=== PATIENT | female | born 1965 | race Caucasian/White ===

== ENCOUNTER 2024-05-12 10:35 | Outpatient (AMB) | payer OTHER, SELFPAY ==
--- NOTE | 2024-05-12 10:48 | MHC.PC.OV ---
Vital Signs 05/12/24 10:51 Height 5 ft 1 in Weight 135 lb 2 oz BMI 25.5 BP 126/74 Blood Pressure Location Lt brachial Position Sitting Respiration 14 Pulse 88 Pulse Oximetry (%) 99 Oxygen Delivery Method Room Air Intake Visit Reasons: janel from [facility] for monjaro Intake Note: patient is here to [facility]. Accompanied by: Spouse Allergies acetaminophen [From Percocet] Allergy (Severe, Verified 05/12/24 10:56) Vomiting oxycodone [From Percocet] Allergy (Severe, Verified 05/12/24 10:56) Vomiting Tobacco use date assessed: 05/12/24 Dental Screening Dental Screen Date: 05/12/24 Did you have a dental visit in the last 12 months?: Yes Did you have a dental problem in the last 6 months where you did not have access to dental care?: No Was dental information given to patient?: Patient has dentist HPI HPI Comments History of Present Illness Details The patient is a 59-year-old female with a past medical history of type 2 diabetes, hypertension, hyperlipidemia, hidradenitis suppurativa presenting to [facility]. She is transferring from [facility]. Type 2 diabetes: On Mounjaro. A1C 5.3%. Eye exam UTD CV: On hydrochlorothiazide, atorvastatin. Denies chest pain, exertional dyspnea Mammo:due Pap: Colon cancer:due. Has eugene ROS CONSTITUTIONAL: Denies weight loss, fever and chills. HEENT: Denies changes in vision and hearing. RESPIRATORY: Denies SOB and cough. CV: Denies palpitations and CP GI: Denies abdominal pain, nausea, vomiting and diarrhea. : Denies dysuria and urinary frequency. MSK: Denies new myalgia and joint pain. SKIN: Denies rash and pruritus. NEUROLOGICAL: Denies headache PSYCHIATRIC: Denies recent changes in mood. PHYSICAL EXAM: GENERAL: Alert and oriented x 3. NAD EYES: EOMI. Anicteric. HENT: Moist mucous membranes. No scleral icterus. No cervical lymphadenopathy. LUNGS: Clear to auscultation bilaterally. CARDIOVASCULAR: Regular rate and rhythm. No murmur. No JVD. ABDOMEN: Soft, non-tender +bs EXTREMITIES: No edema. Non-tender. SKIN: No rashes or lesions. Warm. NEUROLOGIC: No focal neurological deficits. CN II-XII grossly intact PSYCHIATRIC: Cooperative. Appropriate mood and affect [facility] Medical History (Updated 05/12/24 @ 11:38 by Opal Smith MD) High cholesterol Diabetes Surgical History (Updated 05/12/24 @ 11:12 by Pastor Newton) H/O: hysterectomy History of ankle surgery Family History (Updated 05/12/24 @ 11:15 by Pastor Newton) Mother Alcoholism Throat cancer Sister Pre-diabetes Sister High cholesterol Social History (Updated 05/12/24 @ 11:06 by Pastor Newton) Household Members: Spouse, Family and Children Housing: House Are you a primary chiropractic care to a significant other at home: No Do you presently have visiting nurse or other home services: No 75 years or older and lives alone: No Alcohol intake: current Alcohol intake frequency: holidays/special occasions only Alcohol type: hard liquor Patient Tobacco Use Status: Former Tobacco user Tobacco use type: Cigarette Cigarette Packs Per Day: 1 Cigarettes Per Day: 20 Years Smoked: 40 e-Cigarette/Vaping Use: Currently Using service: No Current occupational status: employed 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 1. Little interest or pleasure in doing things: not at all 2. Feeling down, depressed, or hopeless: not at all 3. Trouble falling or staying asleep, or sleeping too much: several days 4. Feeling tired or having little energy: not at all 5. Poor appetite or overeating: not at all 6. Feeling bad about yourself - or that you are a failure or have let yourself or your family down: not at all 7. Trouble concentrating on things, such as reading the newspaper or watching television: not at all 8. Moving or speaking so slowly that other people could have noticed. Or the opposite - being so fidgety or restless that you have been moving around a lot more than usual: not at all 9. Thoughts that you would be better off or of hurting yourself in some way: not at all Total score: 1 Depression Screening Interpretation: Negative (neg) Depression Screening Done: Yes 48137 - PHQ-9 Billing: Yes Source: Developed by Drs. Edmundo Child, Nadege Arreguin, Ted Lemus and colleagues, with an educational shanae from [employer]. Thrive Questionnaire Date Thrive assessed: 05/12/24 I am a: Patient What is your living situation today?: I have a steady place to live Within the past 12 months, did the food you bought not last and you didn't have the money to get more?: Never true Within the past 12 months, did you worry whether your food would run out before you got money to buy more?: Never true Do you have trouble paying for medicines?: No Do you have trouble getting transportation to medical appointments?: No Do you have trouble paying your heating and electricity bill?: No Do you have trouble taking care of your child, family member or friend?: No Do you have trouble with day-to-day activities such as bathing, preparing meals, shopping, managing finances, etc.?: No Are you currently unemployed and looking for a job?: No Are you interested in more education?: No Please select the resources that you would like help with: None Currently or been in a relationship where the following occur: No concerns reported THRIVE Score: 0 AUDIT C Alcohol Use Questionnaire (AUDIT-C) 1. How often do you have a drink containing alcohol?: Monthly or less 2. How many drinks containing alcohol do you have on a typical day when you are drinking?: 1 or 2 3. How often do you have six or more drinks on one occasion?: Never Total Score: 1 JETHRO-7 AMB Questionnaire JETHRO-7 Date JETHRO - 7 assessed: 05/12/24 Feeling nervous, anxious, or on edge: 0 = Not at all Not being able to stop or control worryin = Not at all Worrying too much about different things: 0 = Not at all Trouble relaxin = Not at all Being so restless that it is hard to sit still: 0 = Not at all Becoming easily annoyed or irritable: 0 = Not at all Feeling afraid as if something awful might happen: 0 = Not at all Total JETHRO-7 score (0-4 normal; 5-9 mild; 10-14 moderate; 15-21 severe): 0 Source: Developed by Nadege SchwartzW. Rodríguez, Ted Lemus and colleagues, with an educational shanae from [employer]. JETHRO-7 Assessment Billing JETHRO-7 Assessment Tool: JETHRO-7 Assessment 16555 Physical exam (Primary Care) Vital Signs: Last Vital Signs Pulse 88 05/12/24 10:51 Resp 14 05/12/24 10:51 BP 126/74 05/12/24 10:51 Pulse Ox 99 05/12/24 10:51 Oxygen Delivery Method Room Air 05/12/24 10:51 BMI result Body Mass Index 25.5 Tobacco/Smoking Status: Tobacco use Status Tobacco use date assessed 05/12/24 05/12/24 11:04 Patient Tobacco Use Status Former Tobacco user 05/12/24 11:06 Tobacco use type Cigarette 05/12/24 11:06 e-Cigarette/Vaping Use Currently Using 05/12/24 11:06 PHQ-9: PHQ-9 Score PHQ-9: Total score 1 05/24/24 11:40 Depression Screening Interpretation: Negative (neg) Thrive Assessment: Date of Thrive Assessment Date Thrive assessed 05/12/24 05/12/24 11:10 Currently or been in a relationship where the following occur: No concerns reported Assessment and Plan Assessment & Plan (1) Encounter to establish care: Code(s): Z76.89 - Persons encountering health services in other specified circumstances Plan: 59 year old female presenting to establish care. Past medical, surgical, social and family history reviewed. Labs ordered. Referral colonoscopy. Mammogram ordered (2) Diabetes: Code(s): E11.9 - Type 2 diabetes mellitus without complications Qualifiers: Diabetes mellitus complication status: without complication Diabetes mellitus terminal makeup operator insulin use: without terminal makeup operator use Diabetes mellitus type: type 2 Qualified Code(s): E11.9 - Type 2 diabetes mellitus without complications Plan: Continue mounjaro. Labs ordered Orders: Orders Hemoglobin A1c 05/12/24 E78.00 - Pure hypercholesterolemia, unspecified, E11.9 - Type 2 diabetes mellitus without complications Complete Blood Count Auto Diff 05/12/24 E78.00 - Pure hypercholesterolemia, unspecified, E11.9 - Type 2 diabetes mellitus without complications MM screening mammo BI 05/12/24 Z12.31 - Encounter for screening mammogram for malignant neoplasm of breast Comprehensive Met. Panel 05/12/24 E78.00 - Pure hypercholesterolemia, unspecified, E11.9 - Type 2 diabetes mellitus without complications Lipid Panel 05/12/24 E78.00 - Pure hypercholesterolemia, unspecified, E11.9 - Type 2 diabetes mellitus without complications Referrals Open Access Screening Colonoscopy Referral Z12.11 - Encounter for screening for malignant neoplasm of colon, Z12.12 - Encounter for screening for malignant neoplasm of rectum, Z15.09 - Genetic susceptibility to other malignant neoplasm Medications: New tirzepatide (Mounjaro) 5 mg (0.5 mL) subcut QWEEK 6 mL 3RF 12 weeks Coding Level of Care Code New Pt Level 4 (17370) Diagnoses Encounter to establish care Z76.89 Type 2 diabetes mellitus without complication, without long-term current use of insulin E11.9 Diabetes mellitus complication status: without complication Diabetes mellitus terminal makeup operator insulin use: without terminal makeup operator use Diabetes mellitus type: type 2 Additional Codes JETHRO-7 Assessment Billing - JETHRO-7 Assessment Tool: JETHRO-7 Assessment 86798 ([id number])
[2024-05-12 10:51] VITALS: BP 126/74; PULSE 88; RESP 14; O2SAT 99; BMI 25.5
== END 2024-05-12 11:54 | disposition home or self-care (01) ==
PROVIDERS: PCP Internal Medicine; Visit Provider Internal Medicine
DX: E11.9 Type 2 diabetes mellitus without complications (principal); Z76.89 Persons encountering health services in other specified circumstances
CPT/HCPCS: 99204

== ENCOUNTER 2024-05-12 11:45 | Outpatient (REF) | payer OTHER, SELFPAY ==
[2024-05-12 14:37] LABS: MANUAL DIFF FLAG NO
[2024-05-12 14:44] LABS: Basophils Percent Auto 0.9 % (0-2); Eosinophils Absolute Auto 0.1 X10*3/uL (0.0-0.4); Eosinophils Percent Auto 1.8 % (0-4); Hematocrit 42.4 % (37.0-47.0); Hemoglobin 14.4 g/dl (12.0-16.0); Imm Gran Abs Auto 0.01 X10*3/uL (0.00-0.03); Imm Gran Pct Auto 0.2 % (0.0-0.4); Lymphocytes Absolute Auto 1.7 X10*3/uL (1.2-4.9); Lymphocytes Percent Auto 39.5 % (20-40); Mean Corpuscular Hemoglobin 30.3 pg (27.0-33.0); Mean Corpuscular Volume 89.1 fL (80.0-98.0); Mean Platelet Volume 10.3 fL (9.4-12.3); Monocytes Absolute Auto 0.4 X10*3/uL (0.1-1.2); Neutrophils Absolute Auto 2.1 x10*3/uL (2.0-8.3); Neutrophils Percent Auto 47.6 % (45-73); Platelet Count 227 X10*3/uL (160-400); Red Blood Count 4.76 X10*6/uL (4.20-5.50); Red Cell Distribution Width 12.6 % (11.0-16.0); White Blood Count 4.4 X10*3/uL (4.8-10.8)
[2024-05-12 14:50] LABS: Estimated Average Glucose 105 mg/dL; Hemoglobin A1c % 5.3 % (<6.0)
[2024-05-12 15:06] LABS: Alanine Aminotransferase 24 U/L (0-31); Albumin Level 4.2 g/dL (3.5-5.0); Alkaline Phosphatase 73 U/L (39-117); Anion Gap 12 (12-20); Aspartate Amino Transferase 18 U/L (5-31); Bilirubin Total 0.5 mg/dL (0.0-1.0); Blood Urea Nitrogen 13 mg/dL (9-16); Calcium 10.3 mg/dL (8.4-10.2); Carbon Dioxide 30 mmol/L (22-29); Chloride 102 mmol/L (96-108); Cholesterol 154 mg/dL (<200); Estimated Glomerular Filt Rate > 60; Glucose Random 88 mg/dL (60-115); HDL Cholesterol 64 mg/dL (>40); LDL Cholesterol Calculated 76 mg/dL (<100); Potassium 3.5 mmol/L (3.3-5.1); Sodium 140 mmol/L (135-145); Total Protein 7.1 g/dL (6.5-8.0); Triglycerides 73 mg/dL (<150)
== END 2024-05-12 11:46 | disposition home or self-care (01) ==
LOC: HO.WFDLDS 11:45
PROVIDERS: Visit Provider Internal Medicine
DX: E11.9 Type 2 diabetes mellitus without complications (principal); E78.00 Pure hypercholesterolemia, unspecified
CPT/HCPCS: 36415; 80053; 80061; 83036; 85025

== ENCOUNTER 2024-05-26 13:30 | Outpatient (REF) | payer OTHER, SELFPAY ==
--- NOTE | ~2024-05-26 | MM_ITS ---
EXAMINATION: MM SCREENING DIGITAL BREAST TOMOSYNTHESIS, BILATERAL CLINICAL INFORMATION: Screening. Asymptomatic. COMPARISON: Mammography: Comparison is made with available priors TECHNIQUE: Digital breast mammography with tomosynthesis is performed in both the craniocaudal and mediolateral oblique views along with computer-aided detection (CAD). FINDINGS: The breasts are heterogeneously dense, which may obscure small masses (ACR BI-RADS breast composition Category c). There are no significant masses, abnormal calcifications, or other abnormalities. MM/MM tomosynthesis screening BI IMPRESSION: No mammographic evidence of malignancy. ASSESSMENT: BI-RADS BI-RADS 1 - Negative RECOMMENDATION: Routine annual mammography screening. 1 year F/U This examination should not preclude the clinical evaluation of a suspicious palpable abnormality. This patient's information was entered into a reminder system with a target due date for their next mammogram. Electronically signed by: Winnie Triana DO 06/09/2024 01:36 PM EDT
== END 2024-05-26 13:31 | disposition home or self-care (01) ==
LOC: HO.MAMMO 13:30
PROVIDERS: PCP Internal Medicine; Visit Provider Internal Medicine
DX: Z12.31 Encounter for screening mammogram for malignant neoplasm of breast (principal)
CPT/HCPCS: 77063; 77067

== ENCOUNTER → 2024-05-26 13:45 | Outpatient (BNV) | payer OTHER, SELFPAY | PROVIDERS: PCP Internal Medicine; Visit Provider Internal Medicine | DX: Z12.31 Encounter for screening mammogram for malignant neoplasm of breast (principal) | CPT/HCPCS: 77063; 77067 ==

== ENCOUNTER 2024-08-25 15:16 | Outpatient (AMB) | payer OTHER, SELFPAY ==
--- NOTE | 2024-08-25 15:26 | MHC.PC.OV ---
Vital Signs 08/25/24 15:34 Height 5 ft 1 in Weight 131 lb 2 oz BMI 24.8 BP 120/74 Blood Pressure Location Rt brachial Position Sitting Pulse 74 Pulse Source Pulse Oximeter Pulse Oximetry (%) 98 Oxygen Delivery Method Room Air Intake Visit Reasons: DM follow up Intake Note: Follow up Allergies acetaminophen [From Percocet] Allergy (Severe, Verified 05/12/24 10:56) Vomiting oxycodone [From Percocet] Allergy (Severe, Verified 05/12/24 10:56) Vomiting Tobacco use date assessed: 05/12/24 Dental Screening Dental Screen Date: 05/12/24 HPI HPI Comments History of Present Illness Details The patient is a 59-year-old female with a past medical history of type 2 diabetes, hypertension, hyperlipidemia, hidradenitis suppurativa presenting to [facility]. She is transferring from [facility]. Type 2 diabetes: On Mounjaro. A1C 5.3%. Eye exam UTD CV: On hydrochlorothiazide, atorvastatin. Denies chest pain, exertional dyspnea Mammo:due Pap: Colon cancer:due. Has eugene ROS CONSTITUTIONAL: Denies weight loss, fever and chills. HEENT: Denies changes in vision and hearing. RESPIRATORY: Denies SOB and cough. CV: Denies palpitations and CP GI: Denies abdominal pain, nausea, vomiting and diarrhea. : Denies dysuria and urinary frequency. MSK: Denies new myalgia and joint pain. SKIN: Denies rash and pruritus. NEUROLOGICAL: Denies headache PSYCHIATRIC: Denies recent changes in mood. PHYSICAL EXAM: GENERAL: Alert and oriented x 3. NAD EYES: EOMI. Anicteric. HENT: Moist mucous membranes. No scleral icterus. No cervical lymphadenopathy. LUNGS: Clear to auscultation bilaterally. CARDIOVASCULAR: Regular rate and rhythm. No murmur. No JVD. ABDOMEN: Soft, non-tender +bs EXTREMITIES: No edema. Non-tender. SKIN: No rashes or lesions. Warm. NEUROLOGIC: No focal neurological deficits. CN II-XII grossly intact PSYCHIATRIC: Cooperative. Appropriate mood and affect [facility] Medical History (Updated 08/25/24 @ 15:52 by Opal Smith MD) High cholesterol Diabetes Surgical History H/O: hysterectomy History of ankle surgery Family History Mother Alcoholism Throat cancer Sister Pre-diabetes Sister High cholesterol Social History Household Members: Spouse, Family and Children Housing: House Are you a primary child daycare worker to a significant other at home: No Do you presently have visiting nurse or other home services: No 75 years or older and lives alone: No Alcohol intake: current Alcohol intake frequency: holidays/special occasions only Alcohol type: hard liquor Patient Tobacco Use Status: Former Tobacco user Tobacco use type: Cigarette Cigarette Packs Per Day: 1 Cigarettes Per Day: 20 Years Smoked: 40 e-Cigarette/Vaping Use: Currently Using service: No Current occupational status: employed 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 1. Little interest or pleasure in doing things: not at all 2. Feeling down, depressed, or hopeless: not at all 3. Trouble falling or staying asleep, or sleeping too much: not at all 4. Feeling tired or having little energy: not at all 5. Poor appetite or overeating: not at all 6. Feeling bad about yourself - or that you are a failure or have let yourself or your family down: not at all 7. Trouble concentrating on things, such as reading the newspaper or watching television: not at all 8. Moving or speaking so slowly that other people could have noticed. Or the opposite - being so fidgety or restless that you have been moving around a lot more than usual: not at all 9. Thoughts that you would be better off or of hurting yourself in some way: not at all Total score: 0 Depression Screening Interpretation: Negative Depression Screening Done: Yes 85742 - PHQ-9 Billing: Yes Source: Developed by Drs. Edmundo Child, Nadege Arreguin, Ted Lemus and colleagues, with an educational shanae from [employer]. Thrive Questionnaire Date Thrive assessed: 08/25/24 I am a: Patient What is your living situation today?: I have a steady place to live Within the past 12 months, did the food you bought not last and you didn't have the money to get more?: Never true Within the past 12 months, did you worry whether your food would run out before you got money to buy more?: Never true Do you have trouble paying for medicines?: No Do you have trouble getting transportation to medical appointments?: No Do you have trouble paying your heating and electricity bill?: No Do you have trouble taking care of your child, family member or friend?: No Do you have trouble with day-to-day activities such as bathing, preparing meals, shopping, managing finances, etc.?: No Are you currently unemployed and looking for a job?: No Are you interested in more education?: No Please select the resources that you would like help with: None Currently or been in a relationship where the following occur: No concerns reported THRIVE Score: 0 AUDIT C Alcohol Use Questionnaire (AUDIT-C) 1. How often do you have a drink containing alcohol?: Monthly or less (4 times a year) 2. How many drinks containing alcohol do you have on a typical day when you are drinking?: 1 or 2 3. How often do you have six or more drinks on one occasion?: Never Total Score: 1 JETHRO-7 AMB Questionnaire JETHRO-7 Date JETHRO - 7 assessed: 08/25/24 Feeling nervous, anxious, or on edge: 0 = Not at all Not being able to stop or control worryin = Not at all Worrying too much about different things: 0 = Not at all Trouble relaxin = Not at all Being so restless that it is hard to sit still: 0 = Not at all Becoming easily annoyed or irritable: 0 = Not at all Feeling afraid as if something awful might happen: 0 = Not at all Total JETHRO-7 score (0-4 normal; 5-9 mild; 10-14 moderate; 15-21 severe): 0 Source: Developed by Drs. Edmundo Child, Nadege Arreguin, Ted Lemus and colleagues, with an educational shanae from [employer]. JETHRO-7 Assessment Billing JETHRO-7 Assessment Tool: JETHRO-7 Assessment 05837 Physical exam (Primary Care) Vital Signs: Last Vital Signs Pulse 74 08/25/24 15:34 BP 120/74 08/25/24 15:34 Pulse Ox 98 08/25/24 15:34 Oxygen Delivery Method Room Air 08/25/24 15:34 BMI result Body Mass Index 24.8 Tobacco/Smoking Status: Tobacco use Status Tobacco use date assessed 05/12/24 08/25/24 15:27 Patient Tobacco Use Status Former Tobacco user 08/25/24 15:27 Tobacco use type Cigarette 08/25/24 15:27 e-Cigarette/Vaping Use Currently Using 08/25/24 15:27 PHQ-9: PHQ-9 Score PHQ-9: Total score 0 08/25/24 15:39 Depression Screening Interpretation: Negative Thrive Assessment: Date of Thrive Assessment Date Thrive assessed 08/25/24 08/25/24 15:39 Currently or been in a relationship where the following occur: No concerns reported Results AMB Hemoglobin A1c AMB Hemoglobin A1c 5.3 % Last Edit by Lilliam Dexter CMA on 08/25/24 15:47 Coding Additional Codes JETHRO-7 Assessment Billing - JETHRO-7 Assessment Tool: JETHRO-7 Assessment 09975 ([id number]) PHQ-9 - 66524 - PHQ-9 Billing: Yes ([id number]) Assessment & Plan Assessment & Plan Orders: Orders AMB Hemoglobin A1c Today E11.9 - Type 2 diabetes mellitus without complications Lipid Panel Today E11.9 - Type 2 diabetes mellitus without complications, E78.00 - Pure hypercholesterolemia, unspecified, Z13.0 - Encounter for screening for diseases of the blood and blood-forming organs and certain disorders involving the immune mechanism, Z15.09 - Genetic susceptibility to other malignant neoplasm Hemoglobin A1c Today E11.9 - Type 2 diabetes mellitus without complications, E78.00 - Pure hypercholesterolemia, unspecified, Z13.0 - Encounter for screening for diseases of the blood and blood-forming organs and certain disorders involving the immune mechanism, Z15.09 - Genetic susceptibility to other malignant neoplasm Comprehensive Met. Panel Today E11.9 - Type 2 diabetes mellitus without complications, E78.00 - Pure hypercholesterolemia, unspecified, Z13.0 - Encounter for screening for diseases of the blood and blood-forming organs and certain disorders involving the immune mechanism, Z15.09 - Genetic susceptibility to other malignant neoplasm Microalbumin, Random (w Creat) Today E11.9 - Type 2 diabetes mellitus without complications, E78.00 - Pure hypercholesterolemia, unspecified, Z13.0 - Encounter for screening for diseases of the blood and blood-forming organs and certain disorders involving the immune mechanism, Z15.09 - Genetic susceptibility to other malignant neoplasm Medications: New atorvastatin 20 mg PO DAILY 90 tabs 3RF Discontinued tirzepatide (Locoro) Discontinued Reason: Doctor's Order 5 mg (0.5 mL) subcut QWEEK 12 weeks 6 mL 3RF
[2024-08-25 15:34] VITALS: BP 120/74; PULSE 74; O2SAT 98; BMI 24.8
== END 2024-08-25 16:03 | disposition home or self-care (01) ==
PROVIDERS: PCP Internal Medicine; Visit Provider Internal Medicine
DX: E11.9 Type 2 diabetes mellitus without complications (principal)

== ENCOUNTER 2025-02-26 14:04 | Outpatient (REF) | payer OTHER, SELFPAY ==
--- OUTSIDE RECORDS SUMMARY | 2025-02-26 14:07 | XMS_ITS | Clinical Summary ---
Author Organization [facility] Address [address] [place] [address] Care Team Providers Care Macaroni Press Operator Name Role Phone Opal Smith MD Primary Care Provider [phone] Surgical History Surgery Date Site/Laterality Comments TONSILLECTOMY PROCEDURE: HISTORICAL TONSILLECTOMY; COMMENT: adenoids TYMPANOSTOMY TUBE PLACEMENT PROCEDURE: HISTORICAL PE TUBES COLONOSCOPY 10/07/15 PROCEDURE: HISTORICAL COLONOSCOPY; COMMENT: diverticulosis, colon polyps x 2, hemorrhoids and perianal warts Medical History Medical History Date Comments Lumbago DX:Lumbago Hypercholesteremia DX:Hyperchole steremia Family History Medical History Relation Name Comments Breast cancer Maternal Grandmother 60s Colon cancer Neg Hx Ovarian cancer Neg Hx Uterine cancer Neg Hx Relation Name Status Comments Brother Alive healthy Daughter 1 Alive healthy x migra ine cervical dysplasia Daughter 2 Alive healthy x cervi bal dysplasia Father Alive Healthy Maternal Grandfather unknown Maternal Grandmother 60s unknown x mastectomy for breast cnacer Mother (Age 56) throat can cer Paternal Grandfather pancrea tic cancer Paternal Grandmother htn Sister 1 Alive healthy Sister 2 Alive healthy Son Alive healthy Social History Tobacco Use Types Packs/Day Years Used Date Smoking Tobacco: Every Day Cigarettes 0.5 48.9 Started: 1978 Smokeless Tobacco: Never Alcohol Use Standard Drinks/Week Comments Yes 0 (1 standard drink = 0.6 oz pur e alcohol) Comments Unknown Sex and Gender Information Value Date Recorded Sex Assigned at Not on file Legal Sex Female 10:14 PM EST Gender Identity Not on file Sexual Orientation Not on file Obstetrics History Plan of Treatment Health Maintenance Due Date Last Done Comments Pneumococcal Vaccine: 50+ Years (1 of 2 - PCV) 1982 Pneumococcal Vaccine: Pediatrics (0 to 5 Years) and At-Risk Patients (6 to 64 Years) (1 of 2 - PCV) 1982 Cervical Cancer Screening: Pap Smear 1984 Zoster Vaccines (1 of 2) 2013 DTaP,Tdap,and Td Vaccines (2 - Td or Tdap) 05/02/2019 05/02/2009 Cholesterol Screening (Lipid Panel) 08/18/2022 Colorectal Cancer Screening: Colonoscopy 08/18/2022 Depression Screening 08/18/2022 HIV Screening 08/18/2022 Hepatitis C Screening 08/18/2022 Social Influencers of Health Screening 08/18/2022 COVID-19 Vaccine ( season) 2024 Breast Cancer Screening 06/23/2024 06/23/20, 02/22/2021, 12/10/2018, Additional history exists Influenza Vaccine (Season Ended) 2025 07/06/2020, 07/19/2009 RSV Immunization Adult Patients (1 - 1-dose 75+ series) 2038 HIB Vaccines Aged Out No longer eligi ble based on patient's age to complete this topic HPV Vaccines Aged Out No longer eligi ble based on patient's age to complete this topic Hepatitis A Vaccines Aged Out No long er eligible based on patient's age to complete this topic Hepatitis B Vaccines Aged Out No long er eligible based on patient's age to complete this topic IPV Vaccines Aged Out No longer eligi ble based on patient's age to complete this topic MMR Vaccines Aged Out No longer eligi ble based on patient's age to complete this topic Meningococcal ACWY Vaccine Aged Out N o longer eligible based on patient's age to complete this topic Meningococcal B Vaccine Aged Out No l onger eligible based on patient's age to complete this topic RSV Immunization Patients Under 20 months Aged Out No longer eligible based on patient's age to complete this topic Varicella Vaccines Aged Out No longer eligible based on patient's age to complete this topic Procedures Procedure Name Priority Date/Time Associated Diagnosis Comments SCREENING MAMMOGRAPHY BI 2-VIEW BREAST INC CAD Routine 06/23/2022 3:35 PM EDT Encounter for screening mammogram for malignant neoplasm of breast from Last 3 Months or Most Recently Relevant to Health Maintenance Results * SCREENING MAMMOGRAPHY BI 2-VIEW BREAST INC CAD (06/23/2022 3:35 PM EDT) Anatomical Region Laterality Modality Radiographic Jeniffer ging 02/22/2021 4:15 PM EDT Narrative 06/25/2022 3:23 PM EDT This is a summary report. The complete report is available in the patient's medical record. If you cannot access the medical record, please contact the sending organization for a detailed fax or copy. Exam: Screening mammogram Findings: Digital bilateral full-field screening mammography is performed with tomosynthesis and interpreted with the aid of computer-aided detection. ??Comparison is made with 02/22/2021 and as far back as 12/04/2017. Breast parenchyma is composed of scattered fibroglandular densities. ??No new suspicious mass, architectural distortion, or suspicious calcifications. Impression: No mammographic evidence of malignancy. BI-RADS 1 - negative Procedure Note Yana Swift MD - 09/04/2022 This is a summary report. The complete report is available in thepatient's medical record. If you cannot access the medical record, pleasecontact the sending organization for a detailed fax or copy. Exam: Screening mammogram Findings: Digital bilateral full-field screening mammography is performedwith tomosynthesis and interpreted with the aid of computer-aideddetection. Comparison is made with 02/22/2021 and as far back as12/04/2017. Breast parenchyma is composed of scattered fibroglandular densities. Nonew suspicious mass, architectural distortion, or suspiciouscalcifications. Impression: No mammographic evidence of malignancy. BI-RADS 1 - negative us Radiology Results Historical MD IMG XR PROCEDURE S Final Result from Last 3 Months or Most Recently Relevant to Health Maintenance Care Teams Macaroni Press Operator Relationship Specialty Start Date End Date Opal Smith MD PCP - General Internal Medicine 08/29/15
[2025-02-26 18:12] LABS: Estimated Average Glucose 111 mg/dL; Hemoglobin A1C 129.6406 umol/L; Hemoglobin A1c % 5.5 % (<6.0)
[2025-02-26 18:27] LABS: Alanine Aminotransferase 26 U/L (0-31); Albumin Level 4.3 g/dL (3.5-5.0); Alkaline Phosphatase 75 U/L (39-117); Anion Gap 10 (12-20); Aspartate Amino Transferase 19 U/L (5-31); Bilirubin Total 0.5 mg/dL (0.0-1.0); Blood Urea Nitrogen 14 mg/dL (9-16); Calcium 9.7 mg/dL (8.4-10.2); Carbon Dioxide 26 mmol/L (22-29); Chloride 109 mmol/L (96-108); Cholesterol 153 mg/dL (<200); Estimated Glomerular Filt Rate > 60; Glucose Random 89 mg/dL (60-115); HDL Cholesterol 71 mg/dL (>40); LDL Cholesterol Calculated 70 mg/dL (<100); Potassium 4.1 mmol/L (3.3-5.1); Sodium 141 mmol/L (135-145); Total Protein 6.6 g/dL (6.5-8.0); Triglycerides 64 mg/dL (<150)
[2025-02-26 18:33] LABS: Creatinine Urine 91.81 mg/dL; Microalbum/Creatinine Ratio Ur 11.9 ug/mg cr (<30)
== END 2025-02-26 14:05 | disposition home or self-care (01) ==
LOC: HO.WFDLDS 14:04
PROVIDERS: Visit Provider Internal Medicine
DX: E78.00 Pure hypercholesterolemia, unspecified (principal); Z13.0 Encounter for screening for diseases of the blood and blood-forming organs and certain disorders involving the immune mechanism; Z15.09 Genetic susceptibility to other malignant neoplasm; E11.9 Type 2 diabetes mellitus without complications
CPT/HCPCS: 36415; 80053; 80061; 82043; 82570; 83036

== ENCOUNTER 2025-03-01 11:09 | Outpatient (AMB) | payer OTHER, SELFPAY ==
--- NOTE | 2025-03-01 11:11 | A.OFFPC_ITS ---
Vital Signs 03/01/25 11:18 Height 5 ft 1 in Weight 128 lb 8 oz BMI 24.3 BP 126/74 Blood Pressure Location Rt brachial Position Sitting Respiration 12 Pulse 67 Pulse Source Pulse Oximeter Temp 98 F Temp Source Oral Pulse Oximetry (%) 99 Oxygen Delivery Method Room Air Intake Visit Reasons: CPE AWV Intake Note: Physical Tube Coverer Required: No Allergies acetaminophen [From Percocet] Allergy (Severe, Verified 03/01/25 11:15) Vomiting oxycodone [From Percocet] Allergy (Severe, Verified 03/01/25 11:15) Vomiting Tobacco use date assessed: 03/01/25 Dental Screening Dental Screen Date: 03/01/25 Did you have a dental visit in the last 12 months?: Yes Did you have a dental problem in the last 6 months where you did not have access to dental care?: No HPI HPI Comments History of Present Illness Details The patient is a 59-year-old female with a past medical history of type 2 diabetes, hypertension, hyperlipidemia, hidradenitis suppurativa presenting for CPE Type 2 diabetes: Off Mounjaro. A1C 5.5%. Eye exam UTD. she has maintained weight loss. eye exam utd. Sees podiatry CV: Off hydrochlorothiazide, continues atorvastatin. Denies chest pain, exertional dyspnea. Blood pressure is controlled off medicine Follows with [facility] Mammo: 05/26/2024 Colon cancer:due. Has eduardo. colonoscopy is overdue ROS CONSTITUTIONAL: Denies weight loss, fever and chills. HEENT: Denies changes in vision and hearing. Left cervical LN RESPIRATORY: Denies SOB and cough. CV: Denies palpitations and CP GI: Denies abdominal pain, nausea, vomiting and diarrhea. : Denies dysuria and urinary frequency. MSK: Denies new myalgia and joint pain. SKIN: Denies rash and pruritus. NEUROLOGICAL: Denies headache PSYCHIATRIC: Denies recent changes in mood. PHYSICAL EXAM: GENERAL: Alert and oriented x 3. NAD EYES: EOMI. Anicteric. HENT: Moist mucous membranes. No scleral icterus. left cervical LN LUNGS: Clear to auscultation bilaterally. CARDIOVASCULAR: Regular rate and rhythm. No murmur. No JVD. ABDOMEN: Soft, non-tender +bs EXTREMITIES: No edema. Non-tender. SKIN: No rashes or lesions. Warm. NEUROLOGIC: No focal neurological deficits. CN II-XII grossly intact PSYCHIATRIC: Cooperative. Appropriate mood and affect [facility] Medical History High cholesterol Diabetes Surgical History H/O: hysterectomy History of ankle surgery Family History Mother Alcoholism Throat cancer Sister Pre-diabetes Sister High cholesterol Social History Household Members: Spouse, Family and Children Housing: House Are you a primary foster care case manager to a significant other at home: No Do you presently have visiting nurse or other home services: No 75 years or older and lives alone: No Alcohol intake: current Alcohol intake frequency: holidays/special occasions only Alcohol type: hard liquor Patient Tobacco Use Status: Former Tobacco user Tobacco use type: Cigarette Cigarette Packs Per Day: 1 Cigarettes Per Day: 20 Years Smoked: 40 e-Cigarette/Vaping Use: Currently Using Second Hand Smoke Exposure: No service: No Current occupational status: employed 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 1. Little interest or pleasure in doing things: not at all 2. Feeling down, depressed, or hopeless: not at all 3. Trouble falling or staying asleep, or sleeping too much: not at all 4. Feeling tired or having little energy: not at all 5. Poor appetite or overeating: not at all 6. Feeling bad about yourself - or that you are a failure or have let yourself or your family down: not at all 7. Trouble concentrating on things, such as reading the newspaper or watching television: not at all 8. Moving or speaking so slowly that other people could have noticed. Or the opposite - being so fidgety or restless that you have been moving around a lot more than usual: not at all 9. Thoughts that you would be better off or of hurting yourself in some way: not at all Total score: 0 Depression Screening Interpretation: Negative Depression Screening Done: Yes 94974 - PHQ-9 Billing: Yes Source: Developed by Drs. Edmundo Child, Nadege Arreguin, Ted Lemus and colleagues, with an educational shanae from [employer]. Thrive Questionnaire Date Thrive assessed: 03/01/25 I am a: Patient What is your living situation today?: I have a steady place to live Within the past 12 months, did the food you bought not last and you didn't have the money to get more?: Never true Within the past 12 months, did you worry whether your food would run out before you got money to buy more?: Never true Do you have trouble paying for medicines?: No Do you have trouble getting transportation to medical appointments?: No Do you have trouble paying your heating and electricity bill?: No Do you have trouble taking care of your child, family member or friend?: No Do you have trouble with day-to-day activities such as bathing, preparing meals, shopping, managing finances, etc.?: No Are you currently unemployed and looking for a job?: No Are you interested in more education?: No Please select the resources that you would like help with: None THRIVE Score: 0 JETHRO-7 AMB Questionnaire JETHRO-7 Date JETHRO - 7 assessed: 03/01/25 Feeling nervous, anxious, or on edge: 0 = Not at all Not being able to stop or control worryin = Not at all Worrying too much about different things: 0 = Not at all Trouble relaxin = Not at all Being so restless that it is hard to sit still: 0 = Not at all Becoming easily annoyed or irritable: 0 = Not at all Feeling afraid as if something awful might happen: 0 = Not at all Total JETHRO-7 score (0-4 normal; 5-9 mild; 10-14 moderate; 15-21 severe): 0 Source: Developed by Drs. Edmundo Child, Nadege Arreguin, Ted Lemus and colleagues, with an educational shanae from [employer]. JETHRO-7 Assessment Billing JETHRO-7 Assessment Tool: JETHRO-7 Assessment 43512 Physical exam (Primary Care) Tobacco/Smoking Status: Tobacco use Status Tobacco use date assessed 05/12/24 03/01/25 11:13 Patient Tobacco Use Status Former Tobacco user 03/01/25 11:13 Tobacco use type Cigarette 03/01/25 11:13 e-Cigarette/Vaping Use Currently Using 03/01/25 11:13 Depression Screening Interpretation: Negative Thrive Assessment: Date of Thrive Assessment Date Thrive assessed 03/01/25 03/01/25 11:13 Coding Level of Care Code Est Pt Prev Care 40-64y(83595) Diagnoses Physical exam Z00.00 Type 2 diabetes mellitus without complication, without long-term current use of insulin E11.9 Diabetes mellitus type: type 2 Diabetes mellitus terminal system operator insulin use: without retirement use Diabetes mellitus complication status: without complication 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 High cholesterol E78.00 Cervical lymphadenopathy R59.0 Additional Codes JETHRO-7 Assessment Billing - JETHRO-7 Assessment Tool: JETHRO-7 Assessment 43177 ([id number]) PHQ-9 - 56368 - PHQ-9 Billing: Yes ([id number]) Assessment & Plan Assessment & Plan (1) Physical exam: Code(s): Z00.00 - Encounter for general adult medical examination without abnormal findings (2) Diabetes: Code(s): E11.9 - Type 2 diabetes mellitus without complications Category: Medical Qualifiers: Diabetes mellitus type: type 2 Diabetes mellitus terminal system operator insulin use: without retirement use Diabetes mellitus complication status: without complication Qualified Code(s): E11.9 - Type 2 diabetes mellitus without complications (3) Eduardo syndrome: Code(s): Z15.09 - Genetic susceptibility to other malignant neoplasm Category: Medical (4) High cholesterol: Code(s): E78.00 - Pure hypercholesterolemia, unspecified Category: Medical (5) Cervical lymphadenopathy: Code(s): R59.0 - Localized enlarged lymph nodes Category: Medical Plan 59 y/o for physical exam Interval history reviewed Has maintained weight loss. A1C is at goal off medications. Blood pressure is controlled off medications. She is overdue for colonoscopy-this referral is again placed Mammo is scheduled for sept Left cervical LN-US ordered Orders: Orders MM screening mammo BI Today Z12.31 - Encounter for screening mammogram for malignant neoplasm of breast Complete Blood Count Auto Diff 6 Months E11.9 - Type 2 diabetes mellitus witho ut complications, E78.00 - Pure hypercholesterolemia, unspecified, Z15.09 - Genetic susceptibility to other malignant neoplasm Comprehensive Met. Panel 6 Months E11.9 - Type 2 diabetes mellitus without complications, E78.00 - Pure hypercholesterolemia, unspecified, Z15.09 - Genetic susceptibility to other malignant neoplasm Lipid Panel 6 Months E11.9 - Type 2 diabetes mellitus without complications, E78.00 - Pure hypercholesterolemia, unspecified, Z15.09 - Genetic susceptibility to other malignant neoplasm Hemoglobin A1c 6 Months E11.9 - Type 2 diabetes mellitus without complications, E78.00 - Pure hypercholesterolemia, unspecified, Z15.09 - Genetic susceptibility to other malignant neoplasm US soft tiss head and/or neck Today R59.0 - Localized enlarged lymph nodes Referrals Gastroenterology Referral Z13.0 - Encounter for screening for diseases of the blood and blood-forming organs and certain disorders involving the immune mechanism, Z15.09 - Genetic susceptibility to other malignant neoplasm
[2025-03-01 11:18] VITALS: BP 126/74; PULSE 67; RESP 12; TEMP 36.6; O2SAT 99; BMI 24.3
--- OUTSIDE RECORDS SUMMARY | 2025-03-01 12:43 | XMS_ITS | Clinical Summary ---
Author Organization [facility] Address [address] [place] [address] Care Team Providers Care Senior Integration Architect Name Role Phone Opal Smith MD Primary Care Provider Surgical History Surgery Date Site/Laterality Comments TONSILLECTOMY [...] Recently Relevant to Health Maintenance Care Teams Senior Integration Architect Relationship Specialty Start Date End Date Opal Smith MD PCP - General Internal Medicine 08/29/15
== END 2025-03-01 11:46 | disposition home or self-care (01) ==
LOC: HO.HMCFM 11:09
PROVIDERS: PCP Internal Medicine; Visit Provider Internal Medicine
DX: Z00.00 Encounter for general adult medical examination without abnormal findings (principal); E11.9 Type 2 diabetes mellitus without complications; Z15.09 Genetic susceptibility to other malignant neoplasm; E78.00 Pure hypercholesterolemia, unspecified; R59.0 Localized enlarged lymph nodes

== ENCOUNTER → 2025-03-01 11:09 | Outpatient (BNVA) | payer OTHER, SELFPAY | PROVIDERS: PCP Internal Medicine; Visit Provider Internal Medicine | DX: Z00.00 Encounter for general adult medical examination without abnormal findings (principal); E11.9 Type 2 diabetes mellitus without complications; E78.00 Pure hypercholesterolemia, unspecified; R59.0 Localized enlarged lymph nodes; Z15.09 Genetic susceptibility to other malignant neoplasm; Z13.31 Encounter for screening for depression; Z13.30 Encounter for screening examination for mental health and behavioral disorders, unspecified | CPT/HCPCS: 96127 ==

== ENCOUNTER 2025-04-07 15:05 | Outpatient (REF) | payer OTHER, SELFPAY ==
--- NOTE | ~2025-04-07 | US_ITS ---
CLINICAL HISTORY: R59.0 - Localized enlarged lymph nodes US of the left neck Comparison: None Findings: Normal-appearing lymph node with intact fatty hilum measuring 5 mm short axis adjacent to the left carotid bulb. Impression: 1. Normal-appearing lymph node within the left neck. This document has been electronically signed by: Cinthya Salgado MD on 04/08/2025 14:42:40
--- OUTSIDE RECORDS SUMMARY | 2025-04-07 15:37 | XMS_ITS | Clinical Summary ---
Author Organization [facility] Address [address] [place] [address] Care Team Providers Care Yeast Stacker Name Role Phone Opal Smith MD Primary [...] Date Smoking Tobacco: Every Day Cigarettes 0.5 49 Started: 1978 Smokeless Tobacco: Never Alcohol Use [...] Years (1 of 2 - PCV) 1982 Cervical Cancer Screening: Pap Smear 1984 Zoster Vaccines (1 of 2) 2013 DTaP,Tdap,and Td Vaccines (2 - Td or Tdap) 05/02/2019 05/02/2009 Cholesterol Screening (Lipid Panel) 08/18/2022 Colorectal Cancer Screening: Colonoscopy 08/18/2022 HIV Screening 08/18/2022 Hepatitis C Screening 08/18/2022 Social Influencers of Health Screening 08/18/2022 COVID-19 Vaccine ( season) 2024 Breast Cancer Screening 06/23/2024 06/23/20 22, 02/22/2021, 12/10/2018, Additional history exists Depression Screening 09/16/2024 Influenza Vaccine (#1) 2025 07/06/2020, 2008 RSV Immunization Adult Patients (1 - 1-dose [...] interpreted with the aid of computer-aided detection. Comparison is made with 02/22/2021 and as far back as 12/04/2017. Breast parenchyma is composed of scattered fibroglandular densities. No new suspicious mass, architectural distortion, or suspicious [...] 1 - negative us Radiology Results Historical IMG XR PROCEDURE S Final Result from Last 3 Months or Most Recently Relevant to Health Maintenance Care Teams Yeast Stacker Relationship Specialty Start Date End Date Opal Smith MD PCP - General Internal Medicine 08/29/15
--- OUTSIDE RECORDS SUMMARY | 2025-04-07 15:37 | XMS_ITS | Patient Health Record ---
Author Organization [facility] Address [address] [place] [address] Care Team Providers Care Car Ferry Captain Name Role Phone ANNA CRUZ Unavailable [phone] Allergies Allergen (clinical drug ingredient) Drug/Non Drug Allergy documented on EMR Reaction Allergy Type Onset Date Status acetaminophen / oxycodone Percocet Unknown Drug Allergy Active Reason For Referral No Information Medications Medication SIG (Take, Route, Frequency, Duration) Notes Start Date End Date Status Triamcinolone (oint)-Silicone Not-Taking traMADol HCl 50 MG 1 tablet as needed Orally q 6 hours prn Not-Taking Multivitamin - 1 tablet Orally Once a day Not-Taking Humira 40 MG/0.8ML 0.8 mL Subcutaneous x2 Active Ciclopirox 0.77 % 1 application to each affected toenail Externally Once a day for 90 days Active Mounjaro 5 MG/0.5ML as directed Subcutaneous Not-Taking Vitamin D 50 MCG (2000 UT) 1 capsule Ora lly Once a day Active Estradiol 0.5 MG 1 tablet Orally Once a day Not-Taking Nystatin 618401 UNIT/GM 1 application Externally Twice a day Not-Taking Ibuprofen 800 MG 1 tablet with food or milk as needed Orally Three times a day Not-Taking hydroCHLOROthiazide 12.5 MG 1 tablet in the morning Orally Once a day Not-Taking Atorvastatin Calcium 20 MG 1 tablet Oral ly Once a day Active Problems Problem Type SNOMED Code ICD Code Onset Dates Problem Status W/U Status Risk Notes Problem [id number] Type 2 diabetes mellitus without complication, unspecified whether terminologist insulin use (E11.9) Active confirmed Vital Signs Heart Rate 74 /min 04/02/2025 Temperature 96.7 degrees Fahrenheit 04/02/2025 Respiratory Rate 12 /min 04/02/2025 Height 5ft 1in in 04/02/2025 Weight 132.1 lbs 04/02/2025 BMI 24.96 kg/m2 04/02/2025 Encounters Encounter Location Date Provider Diagnosis [facility] [address] [place] [address] 04/02/2025 ANNA CRUZ Type 2 diabetes mellitus without complication, unspecified whether [facility] insulin use E11.9 and Onychomycosis B35.1 Assessments Encounter Date Diagnosis (ICD Code) Assessment Notes Treatment Notes Treatment Clinical Notes Section Notes 04/02/2025 Type 2 diabetes mellitus without complication, unspecified whether terminologist insulin use (ICD-10 - E11.9) Discussed with patient regarding proper glucose control, exercise, and diet. Explained to patient proper shoe gear, and importance of daily foot checks. I reviewed neuropathy and why it occurs in diabetics. I educated the patient on proper blood sugar control and the importance of an HgBA1c of less than 7.0%. I reviewed the signs and symptoms of neuropathy with the patient. She has no foot pain today. Her neurovascular exam remains unchanged. 04/02/2025 Onychomycosis (ICD-10 - B35.1) I reviewed with the patient various treatment methods for toenail fungus including topical, oral, laser, and removal of the infected toenails. We discussed starting topical medication. I explained to the patient that a toenail takes about 12-18 months to grow out completely, so they should start to slowly see results. We discussed there are both OTC treatments as well as prescription medication for the topical treatment of toenail fungus. She is to complete the course of the ciclopirox until the fungus is resolved. She is in agreement with this plan. Plan Of Treatment Pending Test Test Name Order Date X ray : Foot, left 3v 07/10/2021 X ray : Foot, left 3v 03/21/2022 X ray : Foot, left 3v 04/18/2022 X ray : Foot, left 3v 05/16/2022 INJ TENDON SHEATH/LIGAMENT/FASCIA 2022 INJ TENDON SHEATH/LIGAMENT/FASCIA 2022 INJ TENDON SHEATH/LIGAMENT/FASCIA 2020 INJ TENDON SHEATH/LIGAMENT/FASCIA 2020 INJ TENDON SHEATH/LIGAMENT/FASCIA 2020 Next Appt Details Provider Name:ANNA CRUZ, 04/04/2026 04:00:00 PM, [address], [place], [address], Insurance Providers Payer Name Payer Address Payer Phone Subscriber Number Group Number Insured Name Patient Relationship to Insured Coverage Start Date Coverage End Date [employer] [address] [place] [id number] Norma Alvarez Self - patient is the insured Medications Administered Medication Instructions Date of Administration Dosage Notes Dexamethasone 07/10/2021 0.5 mL Dexamethasone 08/08/2021 0.5 mL Dexamethasone 09/05/2021 0.5 mL Dexamethasone 02/01/2023 0.5 mL Dexamethasone 03/01/2023 0.5 mL Kenalog 07/10/2021 0.5 mL Kenalog 08/08/2021 0.5 mL Kenalog 09/05/2021 0.5 mL Kenalog 02/01/2023 0.5 mL Kenalog 03/01/2023 0.5 mL Medical (General) History Medical History History ICD Code Pure hypercholesterolemia, unspecified E 78.00 lumbago Headache, unspecified R51.9 Surgical History Surgery Date(Month/Year) historical Colonoscopy, dive rticulosis ,colon polyps X 2, hemorrhoids and perianal warts historical PE tubes historical tonsillectomy, adenoids ankle surgery 10/08/2017 ankle surgery 01/21/2018 hysterectomy 10/08/2018 Hospitalization History Reason Date(Month/Year) hysterectomy 10/08/2018 ankle surgery 01/21/2018 ankle surgery 10/08/2017 vaginal delivery (boy) 1984 vaginal delivery (girl) 1983 vaginal delivery (girl) 1981
== END 2025-04-07 15:06 | disposition home or self-care (01) ==
LOC: HO.US 15:05
PROVIDERS: PCP Internal Medicine; Visit Provider Internal Medicine
DX: R59.0 Localized enlarged lymph nodes (principal)
CPT/HCPCS: 76536

== ENCOUNTER → 2025-04-07 15:07 | Outpatient (BNV) | payer OTHER, SELFPAY | PROVIDERS: PCP Internal Medicine; Visit Provider Radiology Diagnostic Radiology | DX: R59.0 Localized enlarged lymph nodes (principal) | CPT/HCPCS: 76536 ==

== ENCOUNTER 2025-04-28 12:46 | Outpatient (AMB) | payer OTHER, SELFPAY ==
--- NOTE | 2025-04-28 13:01 | MHC.OFFVIS ---
Vital Signs 04/28/25 13:07 Height 5 ft 1 in Weight 128 lb BMI 24.2 BP 142/81 H Blood Pressure Location Lt brachial Position Sitting Pulse 72 Intake Visit Reasons: Serafina Screen - Genetic susceptibility Intake Note: Norma presents in the office as a colon screening. CC: She states that she is not having any GI concerns - questions Eduardo syndrome as daughter has it. Copyright Clerk Required: No Allergies acetaminophen (From Percocet) Allergy (Severe, Verified 04/28/25 13:08) Vomiting oxycodone (From Percocet) Allergy (Severe, Verified 04/28/25 13:08) Vomiting Medication List - Last Reconciled 04/28/25 by Blanca Epps CNP adalimumab-adaz (Hyrimoz(CF) Pen) mg subcut atorvastatin 20 mg PO DAILY cholecalciferol (vitamin D3) 50 mcg PO DAILY ciclopirox 0.77% 1 appl topical DAILY HPI HPI Serafina Screen - Genetic susceptibility: Details: Patient is a 60-year-old female with PMH of hyperlipidemia, diabetes Eduardo syndrome. Referred by PCP for pre colonoscopy screening. She expresses concern regarding potential eduardo syndrome due to a strong family history. Her daughter and three first cousins on her father?s side have been confirmed with eduardo syndrome via genetic testing, though the patient herself has not undergone testing and does not plan to at this time. Her last colonoscopy was 10 years ago through an outside facility, with unclear results, and she is now seeking screening as part of her efforts to prioritize health. She denies abdominal pain, bloating, nausea, vomiting, diarrhea, bleeding, or changes in appetite. She experiences occasional constipation, primarily related to hydration status, which resolves without intervention. Her weight is stable, within the high 120s-to-low 130s range, and she follows an intermittent fasting regimen with previous success in managing weight and improving her pre-diabetic status. She reports no recent fever, heartburn, or trouble swallowing. Of note, she had a hysterectomy in 2019 for endometriosis, informed by her insole beveler as preventative against cancer risks, and she reports a resolution of migraines since this surgery. She denies any other concerning constitutional, gastrointestinal, or systemic symptoms. Social hx: -Diet: Intermittent fasting, reports good adherence and benefits. Stable weight with no appetite changes. -Alcohol Use: Rare, usually 4-5 times yearly, slight increase during summer while camping. -Tobacco Use: Former smoker, quit two years ago (November 2022); now vapes with lowest nicotine levels. -Drug Use: Denies recreational drug use or marijuana. - family hx as below -denies personal hx of CA -denies significant cardiopulmonary history -tolerated anesthesia in the past without difficulty. [facility] Medical History (Updated 04/28/25 @ 16:54 by Blanca Epps CNP) Family history of Eduardo syndrome Colon cancer screening High cholesterol Diabetes Surgical History Hx of colonoscopy H/O: hysterectomy History of ankle surgery Family History Mother Alcoholism Throat cancer Sister Pre-diabetes Sister High cholesterol Daughter Eduardo syndrome Paternal Grandfather Pancreatic cancer Social History Household Members: Spouse, Family and Children Housing: House Are you a primary wound care technician to a significant other at home: No Do you presently have visiting nurse or other home services: No 75 years or older and lives alone: No Alcohol intake: current Alcohol intake frequency: holidays/special occasions only Alcohol type: hard liquor Patient Tobacco Use Status: Former Tobacco user Tobacco use type: Cigarette Cigarette Packs Per Day: 1 Cigarettes Per Day: 20 Years Smoked: 40 e-Cigarette/Vaping Use: Currently Using Second Hand Smoke Exposure: No service: No Current occupational status: employed 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 [employer] Current occupational exposures/hazards: No Cognitive needs: No 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) Vision needs: Yes (wear glasses) Review of Systems Const Reports as per HPI ENT Reports as per HPI Card Reports as per HPI Resp Reports as per HPI GI Reports as per HPI Reports as per HPI Physical Exam Vital Signs: Last Vital Signs Pulse 72 04/28/25 13:07 BP 142/81 H 04/28/25 13:07 BMI result Body Mass Index 24.2 Const General: healthy appearing, no acute distress and well developed Nutritional Appearance: average body habitus Orientation/consciousness: patient oriented x3 HEENT Head: Yes normal to inspection, Yes normocephalic and Yes atraumatic Face and sinus: Yes normal facial exam Eyes General: appearance normal, both eyes and all related structures Neck Neck: Yes normal visual inspection Resp Effort & Inspection: normal respiratory effort, able to speak in complete sentences, no tracheal deviation and symmetric chest movement Cardio Jugular venous distension: no JVD Neuro General: patient oriented x3 Gait exam (Neuro): Normal gait present Psych Appearance: grossly normal Mental Status: mental status grossly normal Speech and movement: Normal speech and movement present Affect: normal affect Attitude: cooperative Thought process: Normal thought process present Thought content: Normal thought content present Insight: Good insight present (Psych) Judgement: Good judgement present (Psych) Assessment & Plan Assessment & Plan (1) Colon cancer screening: Code(s): Z12.11 - Encounter for screening for malignant neoplasm of colon Category: Medical Plan: Family history of eduardo syndrome and prior incomplete screening history warrant regular colonoscopy. No alarm features Medications: -prescriptions for laxative tablets and MiraLax sent to pharmacy; instructions for Gatorade purchase and clear liquid diet given. Patient educated on scheduling process, procedure preparation, including avoiding certain foods and ensuring clear liquid intake Advised on necessity for ride post-procedure due to sedation. (2) Family history of Eduardo syndrome: Code(s): Z80.0 - Family history of malignant neoplasm of digestive organs Category: Medical Plan: Daughter with confirm diagnosis. Norma with 50% chance of carrying gene mutation, increases cancer risk due to potential of eduardo syndrome. Current labs (including liver function tests and alkaline phosphatase) reassuring. Additional Testing: Imaging for pancreatobiliary eval deferred unless symptoms such as epigastric pain, nausea/vomiting, or worsening reflux develop. Patient instructed to notify clinic if these arise. Lifestyle Recommendations: Patient continues intermittent fasting with benefits; advised to maintain healthy weight and diet. No changes needed. Follow-Up: Monitor baseline labs as part of routine care, reassess with any change in clinical symptoms. Plan Follow-up after colonoscopy or sooner as needed Time: I spent a total of 30 minutes on the date of encounter which includes: Preparing to see the patient (reviewed previous documentation, test results and medical history) Performing a medically appropriate exam and/or evaluation Ordering medications, tests, and procedures Documenting clinical information in the health record Medications: New bisacodyl (Dulcolax (bisacodyl)) Take four tablets pre colonoscopy instructions 20 mg (4 x 5 mg) PO ONCE 4 tabs 0RF 1 day polyethylene glycol 3350 (Miralax) per colonoscopy prep instructions 238 grams PO ONCE 238 grams 0RF Coding Level of Care Code New Pt New Pt Level 3 (98255) Patient Type New Diagnoses Colon cancer screening Z12.11 Family history of Eduardo syndrome Z80.0
[2025-04-28 13:07] VITALS: BP 142/81; PULSE 72; BMI 24.2
--- OUTSIDE RECORDS SUMMARY | 2025-04-28 13:16 | XMS_ITS | Clinical Summary ---
Author Organization [facility] Address [address] [place] [address] Care Team Providers Care Grey Stock Recorder Name Role Phone Opal Smith MD Primary Care Provider [phone] Surgical History Surgery Date Site/Laterality Comments TONSILLECTOMY [...] Date Smoking Tobacco: Every Day Cigarettes 0.5 49.1 Started: 1978 Smokeless Tobacco: Never Alcohol Use [...] Recently Relevant to Health Maintenance Care Teams Grey Stock Recorder Relationship Specialty Start Date End Date Opal Smith MD PCP - General Internal Medicine 08/29/15
--- OUTSIDE RECORDS SUMMARY | 2025-04-28 13:16 | XMS_ITS | Patient Health Record ---
Author Organization [facility] Address [address] [place] [address] Care Team Providers Care Tortilla Maker Name Role Phone ANNA CRUZ Unavailable [phone] Allergies Allergen (clinical drug ingredient) Drug/Non Drug [...] to each affected toenail Externally Once a day; Duration: 90 days Active Mounjaro 5 MG/0.5ML as directed Subcutaneous Not-Taking Vitamin D 50 MCG (2000 UT) 1 capsule Ora lly Once a day Active Estradiol 0.5 MG 1 tablet Orally Once a day Not-Taking Nystatin 989903 UNIT/GM 1 application Externally Twice a day [...] Problem Status W/U Status Risk Notes Problem Type 2 diabetes mellitus without complication, unspecified whether emt intermediate insulin use (E11.9) Active confirmed Vital Signs Heart Rate 74 /min 04/02/2025 Temperature 96.7 degrees Fahrenheit 04/02/2025 Respiratory Rate 12 /min 04/02/2025 Height 5ft 1in in 04/02/2025 Weight 132.1 lbs 04/02/2025 BMI 24.96 kg/m2 04/02/2025 Encounters Encounter Location Date Provider Diagnosis [facility] [address] [place] [address] 04/02/2025 ANNA CRUZ Type 2 diabetes mellitus without complication, unspecified whether emt intermediate insulin use E11.9 and Onychomycosis B35.1 Assessments Encounter Date Diagnosis (ICD Code) Assessment Notes Treatment Notes Treatment Clinical Notes Section Notes 04/02/2025 Type 2 diabetes mellitus without complication, unspecified whether half-way insulin use (ICD-10 - E11.9) Discussed with [...] Name:ANNA CRUZ, 04/04/2026 04:00:00 PM, [address], [place], [address], Insurance Providers Payer Name Payer Address Payer Phone Subscriber Number Group Number Insured Name Patient Relationship to Insured Coverage Start Date Coverage End Date [employer] [address] [place] [phone] [id number] Norma Alvarez Self - patient is the [...]
--- OUTSIDE RECORDS SUMMARY | 2025-04-28 13:16 | XMS_ITS | Encounter Summary ---
Author Organization [facility] Address [address] [place] [address] Care Team Providers Care Community Mental Health Social Worker Name Role Phone Opal Newman MD Primary Care Provider Marisel dean Encounter Details Date Type Department Care Team Description 08/05/2018 Network Technician Report Medical Records [address] [place] [address] Darius Krause Social History Tobacco Use Types Packs/Day Years Used Date Smoking Tobacco: Every Day Cigarettes 1.5 30 Started: 1978 Smokeless Tobacco: Never Alcohol Use Standard Drinks/Week Comments Yes 0 (1 standard drink = 0.6 oz pur e alcohol) 6/year Sex Assigned at Date Recorded Not on file documented as of this encounter Plan of Treatment Not on file documented as of this encounter Visit Diagnoses Not on filedocumented in this encounter Care Teams Community Mental Health Social Worker Relationship Specialty Start Date End Date Opal Newman MD PCP - General Internal Medicine 08/29/15 documented as of this encounter
== END 2025-04-28 13:42 | disposition home or self-care (01) ==
LOC: HO.HGI 12:47
PROVIDERS: PCP Internal Medicine; Visit Provider Nurse Practitioner Family
DX: Z01.818 Encounter for other preprocedural examination (principal); Z12.11 Encounter for screening for malignant neoplasm of colon; Z80.0 Family history of malignant neoplasm of digestive organs
CPT/HCPCS: S0285

== ENCOUNTER 2025-06-01 13:01 | Outpatient (REF) | payer OTHER, SELFPAY ==
--- NOTE | ~2025-06-01 | MM_ITS ---
EXAMINATION: MM SCREENING DIGITAL BREAST TOMOSYNTHESIS, BILATERAL CLINICAL INFORMATION: Screening. Asymptomatic. COMPARISON: Mammography: Comparison is made with available priors TECHNIQUE: Digital breast mammography with tomosynthesis is performed in both the craniocaudal and mediolateral oblique views along with computer-aided detection (CAD). FINDINGS: The breasts are heterogeneously dense, which may obscure small masses (ACR BI-RADS breast composition Category c). There are no significant masses, abnormal calcifications, or other abnormalities. MM/MM tomosynthesis screening BI IMPRESSION: No mammographic evidence of malignancy. ASSESSMENT: BI-RADS BI-RADS 1 - Negative RECOMMENDATION: Routine annual mammography screening. 1 year F/U This examination should not preclude the clinical evaluation of a suspicious palpable abnormality. This patient's information was entered into a reminder system with a target due date for their next mammogram. Electronically signed by: Winnie Triana DO 06/04/2025 02:28 PM EDT
--- OUTSIDE RECORDS SUMMARY | 2025-06-01 16:59 | XMS_ITS | Patient Health Record ---
Author Organization [facility] Address [address] [place] [address] Care Team Providers Care Emergency Management Specialist Name Role Phone ANNA CRUZ Unavailable [phone] Allergies Allergen (clinical drug ingredient) Drug/Non Drug [...] tablet Orally Once a day Not-Taking Nystatin 134063 UNIT/GM 1 application Externally Twice a day [...] Status W/U Status Risk Notes Problem Type II diabetes mellitus without complication (119444921) Type 2 diabetes mellitus without complication, unspecified whether termite technician insulin use (E11.9) Active confirmed Vital Signs Heart Rate 74 /min 04/02/2025 Temperature 96.7 degrees Fahrenheit 04/02/2025 Respiratory Rate 12 /min 04/02/2025 Height 5ft 1in in 04/02/2025 Weight 132.1 lbs 04/02/2025 BMI 24.96 kg/m2 04/02/2025 Encounters Encounter Location Date Provider Diagnosis [facility] [address] [place] [address] 04/02/2025 ANNA CRUZ Type 2 diabetes mellitus without complication, unspecified whether termite technician insulin use E11.9 and Onychomycosis B35.1 Assessments Encounter Date Diagnosis (ICD Code) Assessment Notes Treatment Notes Treatment Clinical Notes Section Notes 04/02/2025 Type 2 diabetes mellitus without complication, unspecified whether senior care insulin use (ICD-10 - E11.9) Discussed with [...] Name:ANNA CRUZ, 04/04/2026 04:00:00 PM, [address] [address], [place], [address], Insurance Providers Payer Name Payer Address Payer Phone Subscriber Number Group Number Insured Name Patient Relationship to Insured Coverage Start Date Coverage End Date A[employer] [address] [place] [phone] [id number] KimNorma scott Self - patient is the insured Medications [...]
--- OUTSIDE RECORDS SUMMARY | 2025-06-01 16:59 | XMS_ITS | Clinical Summary ---
Author Organization [facility] Address [address] [place] [address] Care Team Providers Care Automation Operator Name Role Phone Opal Smith MD Primary Care Provider [phone] Surgical History Surgery Date Site/Laterality Comments TONSILLECTOMY [...] Date Smoking Tobacco: Every Day Cigarettes 0.5 49.2 Started: 1978 Smokeless Tobacco: Never Alcohol Use [...] 08/18/2022 Social Influencers of Health Screening 08/18/2022 Breast Cancer Screening 06/23/2024 06/23/20, 02/22/2021, 12/10/2018, Additional history exists Depression Screening 09/16/2024 COVID-19 Vaccine ( season) 2025 Influenza Vaccine (#1) 2025 07/06/2020, 2008 RSV [...] Recently Relevant to Health Maintenance Care Teams Automation Operator Relationship Specialty Start Date End Date Opal Smith MD PCP - General Internal Medicine 08/29/15
== END 2025-06-01 13:02 | disposition home or self-care (01) ==
LOC: HO.MAMMO 13:01
PROVIDERS: PCP Internal Medicine; Visit Provider Internal Medicine
DX: Z12.31 Encounter for screening mammogram for malignant neoplasm of breast (principal)
CPT/HCPCS: 77063; 77067

== ENCOUNTER → 2025-06-01 13:30 | Outpatient (BNV) | payer OTHER, SELFPAY | PROVIDERS: PCP Internal Medicine; Visit Provider Internal Medicine | DX: Z12.31 Encounter for screening mammogram for malignant neoplasm of breast (principal) | CPT/HCPCS: 77063; 77067 ==